=== PATIENT | male | born 1935 | race Caucasian/White ===

== ENCOUNTER 2016-09-20 15:34 | Emergency (ER) | payer MEDICARE, BC ==
[~2016-09-20] VITALS: Ht 157.5 cm; Wt 87.5 kg
[2016-09-20 15:49] VITALS: Ht 157.5 cm; Wt 87.5 kg
[2016-09-20] MEDS ORDERED: SOD CHLORIDE 0.9% 1,000 ML IV STA (20:31)
[2016-09-20] MEDS ORDERED: ONDANSETRON 4 MG INJ IV STA (20:31)
[2016-09-20 20:52] VITALS: TEMP 97.4
[2016-09-20 20:59] LABS: ADD SCAN DIFF NO
[2016-09-20 21:01] LABS: BASOPHILS % 0.2 % (0.0-2.0); EOSINOPHILS # 0.1 10^3/ul (0.0-0.5); EOSINOPHILS % 1.9 % (0.0-7.0); HEMATOCRIT 32.9 % (42.0-52.0); HEMOGLOBIN 10.8 g/dl (14.0-18.0); LYMPHOCYTES # 2.7 10^3/ul (0.8-2.9); LYMPHOCYTES % 62.8 % (15.0-51.0); MEAN CORPUSCULAR HEMOGLOBIN 30.3 pg (29.0-33.0); MEAN CORPUSCULAR HGB CONC 32.8 g/dl (32.0-37.0); MEAN CORPUSCULAR VOLUME 92.4 fl (82.0-101.0); MEAN PLATELET VOLUME 10.5 fl (7.4-10.4); MONOCYTE # 0.4 10^3/ul (0.3-0.9); MONOCYTES % 8.8 % (0.0-11.0); NEUTROPHIL # 1.1 10^3/ul (1.6-7.5); NEUTROPHILS % 25.6 % (39.0-77.0); PLATELET COUNT 120 10^3/UL (140-415); RED BLOOD COUNT 3.56 10^6/ul (4.70-6.10); RED CELL DISTRIBUTION WIDTH 14.2 % (11.5-14.5); WHITE BLOOD COUNT 4.3 10^3/ul (4.8-10.8)
[2016-09-20 21:04] LABS: ADD UMIC NO; UR ASCORBIC ACID NEGATIVE (NEGATIVE); UR BILIRUBIN (Dip) NEGATIVE (NEGATIVE); UR BLOOD (Dip) NEGATIVE (NEGATIVE); UR CLARITY CLEAR (CLEAR); UR COLOR YELLOW (YELLOW); UR GLUCOSE (Dip) NEGATIVE (NEGATIVE); UR KETONES (Dip) NEGATIVE (NEGATIVE); UR LEUKOCYTE ESTERASE (Dip) NEGATIVE Leu/ul (NEGATIVE); UR NITRITE (Dip) NEGATIVE (NEGATIVE); UR SPECIFIC GRAVITY (Dip) 1.015 (1.003-1.030); UR TOTAL PROTEIN (Dip) NEGATIVE (NEGATIVE); UR UROBILINOGEN (Dip) NEGATIVE (NEGATIVE)
[2016-09-20 21:25] LABS: ALBUMIN 4.5 g/dl (3.3-4.9); ALBUMIN/GLOBULIN RATIO 1.12; BILIRUBIN,INDIRECT 0.2 mg/dl (0-1.1); BILIRUBIN,TOTAL 0.2 mg/dl (0.2-1.3); CALCIUM 8.8 mg/dl (8.4-10.2); CREATININE 0.85 mg/dl (0.61-1.24); POTASSIUM 3.6 mmol/L (3.5-5.1); TOTAL PROTEIN 8.5 g/dl (6.1-8.1)
[2016-09-20] MEDS ORDERED: KETOROLAC 15 MG INJ IV ONE (21:38)
--- NOTE | 2016-09-20 22:32 | RADRPT ---
PROCEDURE: CT abdomen and pelvis without contrast. CLINICAL INDICATION: Abdominal pain. TECHNIQUE: CT scan of the abdomen and pelvis without contrast was performed on a multislice CT [facility] utilizing axial imaging from the lung bases through the pubis symphysis. The patient was scann ed without intravenous contrast. Sagittal and coronal reformatted images were made. The CTDIvol is 17.94 mGy and the DLP is 1003.70 mGycm. One of the following 3 dose reduction techniques were used during this CT examination: automated exp osure control; adjustment of the mA and /or kV according to patient size; or use of iterative recons truciton technique. COMPARISON: Abdomen x-ray FINDINGS: The lung bases are remarkable for as bibasilar discoid atelectasis and small pleural effusions. Mil d cardiomegaly is present. No pericardial effusion is present. The visualized liver is diffusely f atty infiltrated without focal lesions. The spleen, pancreas, and bilateral adrenal glands are norm al. The gallbladder demonstrates a peripherally calcified gallbladder wall or calculus in a decompr essed gallbladder. No evidence for intrahepatic or extrahepatic biliary ductal dilatation is noted. The bilateral kidneys are normal without hydroureteronephrosis or nephroureterolithiasis. An exophy tic lesion measuring 1.2 cm is noted arising from the left mid pole cortex. Vascular calcifications are present of the aorta without aneurysmal dilatation. The visualized bowel demonstrates diverticulosis with mild pericolonic inflammation adjacent to the sigmoid colon. This compatible with early acute sigmoid diverticulitis. The appendix is normal. No evidence for focal abscess collections or pneumoperitoneum is present. The visualized pelvis demonstrates a distended urinary bladder. Mild enlargement of the prostate gl and is noted which measures 4.6 cm AP by 4.7 cm in transverse dimensions. The imaged osseous structures demonstrate grade 1 spondylolisthesis of L5 on S1 with bilateral L5 sp ondylolysis. Severe degenerative endplate and disk changes are present at L5-S1 with vacuum phenome non also noted at the T11-12, L2-3 through L5-S1 levels. IMPRESSION: 1. Early acute sigmoid diverticulitis without evidence for abscess formation or pneumoperitoneum. 2. Colonic diverticulosis 3. Mild diffuse fatty infiltration of the liver 4. Bibasilar discoid atelectasis and small bilateral pleural effusions. 5. Mild cardiomegaly and atherosclerotic vascular disease 6. Mild prostatic enlargement 7. Grade 1 spondylolisthesis of L5 and S1 bilateral L5 spondylolysis and degenerative changes of th e imaged spine. RPTAT: HDC .Myriam Reynolds MD, MD Date Time Electronically viewed and signed by .Myriam Reynolds MD, on 09/20/2016 22:32 .C/
--- NOTE | 2016-09-20 22:39 | RADRPT ---
PROCEDURE: XR chest and abdomen. CLINICAL INDICATION: Abdominal pain TECHNIQUE: AP chest and 2 AP abdomen x-rays, supine and upright. COMPARISON: None available. FINDINGS: Bilateral lower lobe consolidation likely atelectasis with small pleural effusions. Cardiac silhouet te enlargement is demonstrated. There is no evidence for free air below the diaphragm. The bowel gas pattern is normal. There is no evidence of obstruction. There are no abnormal calcific ations overlying the urinary tracts. The osseus structures are unremarkable. Calcification is visible within the aorta RPTAT:HJJR IMPRESSION: 1. Cardiac silhouette enlargement with likely bibasilar subsegmental atelectasis and small pleural e ffusions but no evidence of congestive heart failure. 2. No evidence of acute intra-abdominal pathology. 3. Aortic atherosclerosis is present. Physician Omi Date Time Electronically viewed and signed by Physician Omi on 09/20/2016 22:39 JR/
[2016-09-20] MEDS ORDERED: LOSA50TA6 PO (23:02)
[2016-09-20] MEDS ORDERED: CIPR500T4 PO (23:11)
[2016-09-20] MEDS ORDERED: METR500T PO (23:11)
[2016-09-20] MEDS ORDERED: POLY17PO6 PO (23:11)
[2016-09-20] MEDS ORDERED: NAPR-685 PO (23:11)
--- NOTE | 2016-09-20 23:22 | ERD ---
ER Documentation Chief Complaint Date/Time DATE: 09/20/16 TIME: 23:18 Chief Complaint PT LOUISE HES CONSTIPATED AND HIS ABDOMEN FEELS HARD HPI 81-year-old male presents to the ER for upper abdominal pain and constipation. States that he still having bowel movements with her small and palpable light. He denies any fever and chills. He has no nausea vomiting or diarrhea. Denies chest pain shortness of breath. ROS All systems reviewed and are negative except as per history of present illness. Medications Home Meds Active Scripts Polyethylene Glycol* (Miralax*) 17 Gm Powd.pack, 17 GM PO DAILY for CONSTIPATION , #7 PACKET Prov:AJ CANTU DO 09/20/16 Naproxen* (Naproxen*) 375 Mg Tablet, 375 MG PO BID Y for PAIN, #14 TAB Prov:AJ CANTU DO 09/20/16 Metronidazole* (Flagyl*) 500 Mg Tablet, 500 MG PO TID for 14 Days, TAB Prov:ALONDRAAJ 09/20/16 Ciprofloxacin Hcl* (Ciprofloxacin Hcl*) 500 Mg Tablet, 500 MG PO BID for 14 Days , TAB Prov:AJ CANTU DO 09/20/16 Reported Medications Losartan Potassium* (Losartan Potassium*) Unknown Strength Tablet, PO BID, TAB 09/20/16 Allergies Allergies: Coded Allergies: No Known Allergy (Unverified , 09/20/16) PMhx/Soc History of Surgery: No Anesthesia Reaction: No Hx Neurological Disorder: No Hx Respiratory Disorders: No Hx Cardiac Disorders: No Hx Psychiatric Problems: No Hx Miscellaneous Medical Probl: Yes (BPH, HTN) Hx Alcohol Use: No Hx Substance Use: No Hx Tobacco Use: No Smoking Status: Never smoker Physical Exam Vitals Vital Signs Date Time Temp Pulse Resp B/P Pulse Ox O2 Delivery O2 Flow Rate FiO2 09/20/16 20:52 97.4 70 16 177/88 96 Room Air 09/20/16 15:49 98.5 74 18 182/79 96 Physical Exam Const: [] No distress Head: Atraumatic Eyes: Normal Conjunctiva ENT: Normal External Ears, Nose and Mouth. Neck: Full range of motion..~ No meningismus. Resp: Clear to auscultation bilaterally Cardio: Regular rate and rhythm, no murmurs Abd: Soft, mild upper abdominal pain as well as mild left lower quadrant abdominal pain without guarding or rebound, non distended. Normal bowel sounds Skin: No petechiae or rashes Ext: No cyanosis, or edema Neur: Awake and alert and oriented 3, no focal deficits Psych: Normal Mood and Affect Result Diagram: 09/20/16204909/20/162049 Results 24 hrs Laboratory Tests Test 09/20/16 20:50 White Blood Count 4.310^3/ul Red Blood Count 3.5610^6/ul Hemoglobin 10.8g/dl Hematocrit 32.9% Mean Corpuscular Volume 92.4fl Mean Corpuscular Hemoglobin 30.3pg Mean Corpuscular Hemoglobin Concent 32.8g/dl Red Cell Distribution Width 14.2% Platelet Count 56883^3/UL Mean Platelet Volume 10.5fl Neutrophils % 25.6% Lymphocytes % 62.8% Monocytes % 8.8% Eosinophils % 1.9% Basophils % 0.2% Nucleated Red Blood Cells % 0.0/100WBC Neutrophils # 1.110^3/ul Lymphocytes # 2.710^3/ul Monocytes # 0.410^3/ul Eosinophils # 0.110^3/ul Basophils # 0.010^3/ul Nucleated Red Blood Cells # 0.010^3/ul Urine Color YELLOW Urine Clarity CLEAR Urine pH 7.0 Urine Specific [place] 1.015 Urine Ketones NEGATIVEmg/dL Urine Nitrite NEGATIVEmg/dL Urine Bilirubin NEGATIVEmg/dL Urine Urobilinogen NEGATIVEmg/dL Urine Leukocyte Esterase NEGATIVELeu/ul Urine Hemoglobin NEGATIVEmg/dL Urine Glucose NEGATIVEmg/dL Urine Total Protein NEGATIVEmg/dl Sodium Level 139mmol/L Potassium Level 3.6mmol/L Chloride Level 105mmol/L Carbon Dioxide Level 26mmol/L Anion Gap 12 Blood Urea Nitrogen 14mg/dl Creatinine 0.85mg/dl Glucose Level 97mg/dl Calcium Level 8.8mg/dl Total Bilirubin 0.2mg/dl Direct Bilirubin 0.00mg/dl Indirect Bilirubin 0.2mg/dl Aspartate Amino Transf (AST/SGOT) 40IU/L Alanine Aminotransferase (ALT/SGPT) 53IU/L Alkaline Phosphatase 83IU/L Total Protein 8.5g/dl Albumin 4.5g/dl Globulin 4.00g/dl Albumin/Globulin Ratio 1.12 Lipase 376U/L Current Medications Medications (Trade) Dose Ordered Sig/Thomas Route PRN Reason Start Time Stop Time Status Last Admin Dose Admin Sodium Chloride (NS) 1,000 ml @ 1,000 mls/hr Q1H STAT IV 09/20/16 20:31 09/20/16 21:30 DC 09/20/16 20:51 Ondansetron HCl (Zofran Inj) 4 mg ONCE STAT IV 09/20/16 20:31 09/20/16 20:33 DC 09/20/16 20:51 Ketorolac Tromethamine 15 mg 15 mg ONCE ONCE IV 09/20/16 21:38 09/20/16 21:39 DC 09/20/16 21:58 Ceftriaxone Sodium 50 ml @ 100 mls/hr ONCE ONCE IVPB 09/20/16 23:30 09/20/16 23:59 Metronidazole (Flagyl 500 Mg (Pmx)) 100 ml @ 100 mls/hr ONCE ONCE IVPB 09/20/16 23:30 09/21/16 00:29 Procedures/MDM High functioning elderly male with early diverticulitis and constipation. Patient also has fatty liver. Family is present with the patient. Patient states that he would rather go home and stay in the hospital is definitely appropriate for outpatient management as he has no signs of systemic spread of the early diverticulitis.. He was given a liter of normal saline. He is also given Rocephin and Flagyl. Going to discharge him with Cipro and Flagyl for 2 weeks as well as a lower dose naproxen and MiraLAX for his constipation. I told him how serious diverticulitis may be, if he gets more infected and perforates. Told him return emergency room immediately if he says any severe pain or fevers. Primary care follow-up in 1-2 days. I prepared his laboratories and imaging from to take with him. CT abdomen pelvis interpretation: Early sigmoid diverticulitis and fatty liver. No evidence of perforation. No obstruction, no free air, no fractures Abdominal x-ray interpretation: Significant fatty tissue obscuring most of abdomen, nonspecific bowel gas pattern with some retained stool. Departure Diagnosis: Primary Impression: Acute diverticulitis Additional Impressions: Fatty liver Constipation Condition: Stable Patient Instructions: Constipation (Adult), Diverticulitis Additional Instructions: Llame al doctor TIESHA y nichole [place] MERCEDES PARA DENTRO DE 1-2 PALACIOS.Dgale a la secretaria que nosotros le instruimos hacer esta mercedes.Avise o llame si reyes condicin se empeora antes de la mercedes. Regresa aqui si peor o no mejor. AJ CANTU DO Sep 20, 2016 23:22
[2016-09-20] MEDS ORDERED: CEFTRIAXONE 1 GM/50 ML (PMX) 50 ML IVPB ONE (23:30)
[2016-09-20] MEDS ORDERED: metroNIDAZOLE 500 MG/NS (PMX) 100 ML IVPB ONE (23:30)
[2016-09-21 01:00] VITALS: BP 160/79; PULSE 67; RESP 18
== END 2016-09-21 01:00 | disposition home or self-care (01) ==
LOC: E/R 15:34
DX: K57.92 Diverticulitis of intestine, part unspecified, without perforation or abscess without bleeding (principal); K76.0 Fatty (change of) liver, not elsewhere classified; K59.00 Constipation, unspecified; I10 Essential (primary) hypertension
CPT/HCPCS: 74010; 74176; 80053; 81003; 83690; 85025; J0696; J1885; J2405; J7030; 36415; 96374; 96375